=== PATIENT | male | born 1965 | race Caucasian/White ===

== ENCOUNTER 2018-07-31 09:54 | Emergency (ER) | payer OTHER ==
[~2018-07-31] VITALS: Ht 185.4 cm; Wt 92.0 kg
[2018-07-31 10:06] VITALS: BP 121/82
--- NOTE | 2018-07-31 12:30 | NUR ---
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
== END 2018-07-31 12:44 | disposition home or self-care (01) ==
LOC: ER 09:54
DX: S80.12XA Contusion of left lower leg, initial encounter (principal); E78.00 Pure hypercholesterolemia, unspecified; I10 Essential (primary) hypertension; X58.XXXA Exposure to other specified factors, initial encounter; Y93.89 Activity, other specified; Y92.096 Garden or yard of other non-institutional residence as the place of occurrence of the external cause; Y99.8 Other external cause status
CPT/HCPCS: 93971; 99284